=== PATIENT | male | born 1955 | race Caucasian/White ===

== ENCOUNTER 2020-03-21 08:57 | Emergency (ER) | payer BC ==
[2020-03-21] MEDS: Tetracaine HCl/PF 0.5% 4 ML Bottle EYELF ONE (09:08)
[2020-03-21] MEDS: Fluorescein 1 MG Ophth Strip EYELF ONE (09:20)
[2020-03-21 09:25] VITALS: BP 171/83; PULSE 80
--- NOTE | 2020-03-21 09:27 | EDM.PDOC ---
ED HPI GENERAL MEDICAL PROBLEM - General Stated Complaint: LEFT EYE PAIN Time Seen by Provider: 03/21/20 09:10 Source of Information: Reports: Patient History Limitations: Reports: No Limitations - History of Present Illness INITIAL COMMENTS - FREE TEXT/NARRATIVE: This 65 yo male patient reports to the ED with pain in his left eye. The patient reports his pain is in the left upper eyelid. The patient reports noticing symptoms on Saturday, symptoms got better on Saturday, but got worse again today. The patient has attempted to irrigate his eye with saline. The patient reports he attempted to get into the [facility], but could not get an appointment until this afternoon. Onset Date: 03/19/20 Duration: Constant Location: Reports: Face (left eye) Quality: Reports: Ache, Sharp Severity: Moderate Improves with: Reports: None Worsens with: Reports: None Context: Reports: Other Associated Symptoms: Reports: No Other Symptoms - Related Data Allergies Allergy/AdvReac Type Severity Reaction Status Date / Time No Known Allergies Allergy Verified 03/21/20 09:26 Home Meds: Home Meds Simvastatin [Zocor] 80 mg PO BEDTIME 12/29/13 [History] Past Medical History - Past Health History Medical/Surgical History: Denies Medical/Surgical History HEENT History: Reports: Impaired Vision Other HEENT History: wears glasses Cardiovascular History: Reports: Aneurysm, High Cholesterol Respiratory History: Reports: None Gastrointestinal History: Reports: None Genitourinary History: Reports: None Musculoskeletal History: Reports: None Neurological History: Reports: None Psychiatric History: Reports: None Endocrine/Metabolic History: Reports: None Hematologic History: Reports: None Immunologic History: Reports: None Oncologic (Cancer) History: Reports: None Dermatologic History: Reports: None - Infectious Disease History Infectious Disease History: Reports: Chicken Pox, Measles, Mumps - Past Surgical History Head Surgeries/Procedures: Reports: None GI Surgical History: Reports: Hernia Repair/Other Social & Family History - Caffeine Use Caffeine Use: Reports: Coffee - Living Situation & Occupation Living situation: Reports: Occupation: Employed ED ROS GENERAL - Review of Systems Review Of Systems: Comprehensive ROS is negative, except as noted in HPI. ED EXAM GENERAL W FULL EYE - Physical Exam Exam: See Below Exam Limited By: No Limitations General Appearance: Alert, WD/WN, Moderate Distress Eye Exam: Left Eye: Conjunctival Injection, Corneal Abrasion, Bilateral Eye: EOMI, PERRL Eyelids: Left: Foreign Body (Upper (whitish)) Conjunctiva & Sclera: Right: Normal Appearance, Left: Injected Cornea Exam: Right: Normal Appearance, Left: Corneal Abrasion Extraocular Movements: Bilateral: Intact Pupils: Normal Accommodation Pupillary Size: Bilateral: 4 mm Pupillary Reaction: Bilateral: Brisk Ears: Normal External Exam Nose: Normal Inspection, No Blood Throat/Mouth: Normal Inspection, Normal Lips, Normal Teeth Head: Atraumatic, Normocephalic Neck: Full Range of Motion Respiratory/Chest: No Respiratory Distress, No Accessory Muscle Use Cardiovascular: Normal Peripheral Pulses, Regular Rate, Rhythm (Male) Exam: Deferred Rectal (Males) Exam: Deferred Neurological: Alert, Oriented, Normal Cognition, Normal Gait Psychiatric: Normal Affect, Normal Mood Skin Exam: Warm, Dry, Intact, Normal Color, No Rash ED EYE w/ Add Procedure - Eye Procedure Alcaine Drops Administered: Yes Eye FB Removal: Removal w/ Needle Progress: White foreign body removed without incident from the patient's left upper eyelid Course - Vital Signs Last Recorded V/S: Last Vital Signs Temp 37.0 C 03/21/20 09:21 Pulse 80 03/21/20 09:21 Resp 18 03/21/20 09:21 BP 171/83 H 03/21/20 09:21 Pulse Ox 99 03/21/20 09:21 - Orders/Labs/Meds Meds: Medications Discontinued Medications Generic Name Dose Route Start Last Admin Trade Name Lela PRN Reason Stop Dose Admin Fluorescein Sodium 1 mg 03/21/20 09:01 03/21/20 09:20 Ful-Annie EYELF 03/21/20 09:02 Not Given ONETIME ONE Tetracaine HCl 1 ml 03/21/20 09:01 03/21/20 09:08 Tetracaine 0.5% Steri-Unit Francy EYELF 03/21/20 09:02 1 ml ASDIRECTED ONE Administration Departure - Departure Time of Disposition: 09:23 Disposition: Home, Self-Care 01 Condition: Fair Clinical Impression: Foreign body of left eyelid Corneal abrasion Qualifiers: Encounter type: initial encounter Laterality: left Qualified Code(s): S05.02XA - Injury of conjunctiva and corneal abrasion without foreign body, left eye, initial encounter - Discharge Information *PRESCRIPTION DRUG MONITORING PROGRAM REVIEWED*: No *COPY OF PRESCRIPTION DRUG MONITORING REPORT IN PATIENT TISH: No Instructions: Eye Foreign Body, [id number] Care Plan Goals: The patient was advised of the examination results during the visit. Tetracaine was applied to the patient's left eye. A white foreign body was removed from the patient's left upper eyelid during the visit without incident. A prescription was called to [facility] for Polymyxin B to apply 1/4 inch ribbon to the left lower eyelid 4 times per day for 7 days. If the patient has any additional symptoms or concerns, the patient should either return to the emergency department or visit his eye animal caregiver. Sepsis Event Note (ED) - Focused Exam Vital Signs: Vital Signs Temp Pulse Resp BP Pulse Ox 03/21/20 09:21 37.0 C 80 18 171/83 H 99
== END 2020-03-21 09:35 | disposition home or self-care (01) ==
LOC: DL.ED 08:57
DX: S00.252A Superficial foreign body of left eyelid and periocular area, initial encounter (principal); S05.02XA Injury of conjunctiva and corneal abrasion without foreign body, left eye, initial encounter; E78.00 Pure hypercholesterolemia, unspecified; X58.XXXA Exposure to other specified factors, initial encounter
CPT/HCPCS: 67938; 99283-25

== ENCOUNTER 2024-04-17 12:45 | Emergency (ER) | payer BC, MEDICAID, MEDICARE ==
[2024-04-17 13:26] VITALS: PULSE 61
[2024-04-17 13:38] VITALS: BP 176/71
[2024-04-17] MEDS: Lactulose Soln 10 GM/15 ML 30 ML UD Cup PO ONE (13:42)
[2024-04-17] MEDS: Methylnaltrexone 12 MG/0.6 ML SDV SUBCUT ONE (13:42)
== END 2024-04-17 16:37 | disposition home or self-care (01) ==
LOC: DL.ED 12:45
DX: K59.00 Constipation, unspecified (principal); I10 Essential (primary) hypertension; E78.00 Pure hypercholesterolemia, unspecified; Z95.5 Presence of coronary angioplasty implant and graft; Z79.82 Long term (current) use of aspirin; Z79.899 Other long term (current) drug therapy; J44.9 Chronic obstructive pulmonary disease, unspecified
CPT/HCPCS: 74018; 96372; 99283; A9270; J2212

== ENCOUNTER 2024-04-22 11:36 | Emergency (ER) | payer MEDICARE ==
[2024-04-22 11:55] VITALS: BP 153/83; PULSE 67
[2024-04-22] MEDS: Methylnaltrexone 12 MG/0.6 ML SDV SUBCUT ONE (12:04)
== END 2024-04-22 13:52 | disposition home or self-care (01) ==
LOC: DL.ED 11:36
DX: K59.00 Constipation, unspecified (principal); J44.9 Chronic obstructive pulmonary disease, unspecified; I10 Essential (primary) hypertension; E78.00 Pure hypercholesterolemia, unspecified; Z79.82 Long term (current) use of aspirin; Z79.899 Other long term (current) drug therapy
CPT/HCPCS: 74018; 96372; 99283; J2212-GY

== ENCOUNTER 2024-05-16 10:10 | Emergency (ER) | payer MEDICARE | END 2024-05-16 11:19 | disposition left against medical advice (07) | LOC: DL.ED 10:10 | DX: Z53.21 Procedure and treatment not carried out due to patient leaving prior to being seen by health care provider (principal) ==